=== PATIENT | female | born 1940 | race American Indian/Alaskan Native ===

== ENCOUNTER 2017-03-27 18:22 | Inpatient (IN) | payer MEDICARE ==
[2017-03-27] MEDS ORDERED: Sodium Chloride 0.9% 500 ML IV STA (19:56)
--- NOTE | 2017-03-27 20:13 | ED PDOC ---
Arrival/HPI - General Chief Complaint: Palpitations Time Seen by Provider: 03/27/17 18:34 Historian: Patient - History of Present Illness Narrative History of Present Illness (Text): 03/27/17 20:10 A 76 year old female, whose past medical history includes GERD, hypertension, and asthma, presents to the d complaining of weakness for 2 days. Patient reports 1 week ago, she changed her diet to begin eating healthier in order to improve her blood pressure. She later began experiencing weakness since 2 days ago, and has had a nasal congestion since yesterday. Patient denies of any fever , nausea, vomiting, diarrhea, abdominal pain, chest pain, palpitations, shortness of breath, headache, dizziness, urinary symptoms, recent travels, any sick contacts, or any other complaints. Also, patient mentions she was diagnosed with colon cancer in January and had mass removed. Blood pressure has elevated. Patient takes Losartan Potassium 50 mg PO daily, last intake was at 17 :30. PMD in [place] Time/Duration: > week (2 days) Symptom Onset: Gradual Symptom Course: Unchanged Context: Home Past Medical History - Provider Review Nursing Documentation Reviewed: Yes - Travel History Have you recently traveled outside [place] w/in the past 3 mons?: No - Infectious Disease Hx of Infectious Diseases: None - Tetanus Immunization Tetanus Immunization: Unknown - Cardiac Hx Cardiac Disorders: Yes Hx Hypertension: Yes Other/Comment: fast heart rate when in her 20's - Pulmonary Hx Asthma: Yes - Neurological Hx Neurological Disorder: No - HEENT Hx HEENT Disorder: Yes (glasses) Hx Glaucoma: Yes - Renal Hx Renal Disorder: No Hx Dialysis: No - Endocrine/Metabolic Hx Endocrine Disorders: No - Hematological/Oncological Hx Blood Disorders: No - Integumentary Hx Dermatological Disorder: No - Musculoskeletal/Rheumatological Hx Musculoskeletal Disorders: No Hx Falls: No - Gastrointestinal Hx Gastroesophageal Reflux: Yes - Genitourinary/Gynecological Hx Genitourinary Disorders: No - Psychiatric Hx Psychophysiologic Disorder: No Hx Depression: No Hx Emotional Abuse: No Hx Physical Abuse: No Hx Substance Use: No - Past Surgical History Past Surgical History: No Previous - Anesthesia Hx Anesthesia: No - Suicidal Assessment Feels Threatened In Home Enviroment: No Family/Social History - Physician Review Nursing Documentation Reviewed: Yes Family/Social History: No Known Family HX Smoking Status: Never Smoked Hx Alcohol Use: No Hx Substance Use: No Hx Substance Use Treatment: No Allergies/Home Meds Allergies/Adverse Reactions: Allergies esomeprazole [From Nexium] Allergy (Verified 03/27/17 18:39) NAUSEA ibuprofen [From Motrin] Allergy (Verified 03/27/17 18:39) NAUSEA Penicillins Allergy (Verified 03/27/17 18:39) RASH Tetracyclines Allergy (Verified 03/27/17 18:39) RASH Home Medications: Home Meds Medication Instructions Recorded Confirmed Losartan Potassium 50 mg PO DAILY 02/23/14 03/27/17 Latanoprost 0.005% Opht [XALATAN 1 drp BOTHEYES HS 03/03/15 03/27/17 2.5 Ml] Timolol 0.5% Ophth [Timoptic 0.5% 1 drop BOTHEYES DAILY 03/03/15 03/27/17 Ophth Soln] Review of Systems - Physician Review All systems were reviewed & negative as marked: Yes - Review of Systems Constitutional: Other (weakness). absent: Fevers ENT: Other (nasal congestion) Respiratory: absent: SOB, Cough Cardiovascular: absent: Chest Pain, Palpitations Gastrointestinal: absent: Abdominal Pain, Diarrhea, Nausea, Vomiting Genitourinary Female: absent: Urine Output Changes Physical Exam Vital Signs Reviewed: Yes Vital Signs Temp Pulse Resp BP Pulse Ox 03/27/17 22:28 87 17 168/81 H 100 03/27/17 20:18 79 17 157/82 H 100 03/27/17 18:48 98.5 F 102 H 17 149/67 100 03/27/17 18:39 100.1 F H 96 H 17 149/87 97 Temperature: Febrile Blood Pressure: Normal Pulse: Regular Respiratory Rate: Normal Appearance: Positive for: Well-Appearing Pain Distress: None Mental Status: Positive for: Alert and Oriented X 3 - Systems Exam Head: Present: Atraumatic, Normocephalic Pupils: Present: PERRL Extroacular Muscles: Present: EOMI Conjunctiva: Present: Normal Mouth: Present: Dry Neck: Present: Normal Range of Motion Respiratory/Chest: Present: Clear to Auscultation, Good Air Exchange. No: Respiratory Distress, Accessory Muscle Use Cardiovascular: Present: Regular Rate and Rhythm, Normal S1, S2. No: Murmurs Abdomen: Present: Normal Bowel Sounds. No: Tenderness, Distention, Peritoneal Signs Back: Present: Normal Inspection Upper Extremity: Present: Normal Inspection. No: Cyanosis, Edema Lower Extremity: Present: Normal Inspection. No: Edema Neurological: Present: GCS=15, CN II-XII Intact, Speech Normal Skin: Present: Warm, Dry, Normal Color. No: Rashes Psychiatric: Present: Alert, Oriented x 3, Normal Insight, Normal Concentration Medical Decision Making ED Course and Treatment: 03/27/17 20:15 Impression: 76 year old female with weakness. Physical exam shows mucous membranes dry; heart, lungs, and abdomen normal. DDx: pneumonia, UTI, dehydration Plan: -- EKG -- Chest X-ray -- Labs -- Urinalysis -- urine Culture -- IV Fluids -- Reassess and disposition Prior Visits: Notes and results from previous visits were reviewed. Patient was last seen in the emergency department on 03/13/2017 for abdominal pain. Patient was admitted. Progress Notes: 03/27/17 23:12 VSS, refuses rectal temp. Labs reviewed. Trop (-). UA shows +UTI. CXR: NAD, as read by KRYSTEN. EKG: ST 1st degree AVB, with occ PVC, new T wave inversions in lead V4-V5 not seen in prior EKG in 2014, as read by KRYSTEN. On reevaluation, patient is lying in bed comfortably in no acute distress. Patient states that she feels well and wants to go home. She has no additional complaints. Denies any dizziness, headache, chest pain, shortness of breath. On exam, lungs are clear to auscultation, cardiac regular rate and rhythm, abdomen is soft with no tenderness. Diagnostic results discussed with the patient agreed detail. Patient advised that she has UTI, medicated with Macrobid by mouth. Patient also informed of the EKG changes seen, which were not present on her last EKG. Based on history, exam and diagnostic results plan will be for inpatient observation, due to new EKG changes. Patient agrees with further plan of care for inpatient observation. Case d/w Dr. Larson, agrees with plan for inpt observation. Bridge orders placed. - Lab Interpretations Lab Results: 03/27/17 19:15 03/27/17 19:15 Lab Results 03/27/17 20:49: Urine Color Yellow, Urine Appearance Clear, Urine pH 6.0, Ur Specific [place] <= 1.005, Urine Protein Negative, Urine Glucose (UA) Negative, Urine Ketones Negative, Urine Blood Small H, Urine Nitrate Negative, Urine Bilirubin Negative, Urine Urobilinogen 0.2, Ur Leukocyte Esterase Small H, Urine RBC 0 - 2, Urine WBC 2 - 5, Ur Epithelial Cells 0 - 2, Urine Bacteria Few 03/27/17 19:15: Sodium 140, Potassium 3.6, Chloride 105, Carbon Dioxide 22, Anion Gap 17, BUN 15, Creatinine 0.9, Est GFR ( Amer) > 60, Est GFR (Non- Af Amer) > 60, Random Glucose 107, Calcium 9.4, Total Bilirubin 0.6, AST 47 H, ALT 15, Alkaline Phosphatase 104, Lactate Dehydrogenase 512, Total Creatine Kinase 107, Troponin I < 0.01, Total Protein 8.2, Albumin 4.3, Globulin 3.8, Albumin/Globulin Ratio 1.1 03/27/17 19:15: WBC 6.6, RBC 4.29, Hgb 11.9 L, Hct 37.1, MCV 86.5, MCH 27.7, MCHC 32.1, RDW 15.9 H, Plt Count 210, MPV 10.5, Gran % 57.7, Lymph % (Auto) 34.2 , [place] % (Auto) 7.4 H, Eos % (Auto) 0.5 L, Baso % (Auto) 0.2, Gran # 3.83, Lymph # 2.3, [place] # 0.5, Eos # 0.0, Baso # 0.01 - RAD Interpretation Radiology Orders: 03/27/17 19:55 CHEST PORTABLE [RAD] Stat - Medication Orders Current Medication Orders: Discontinued Medications Sodium Chloride (Sodium Chloride 0.9%) 500 mls @ 500 mls/hr IV .Q1H STA Stop: 03/27/17 20:55 Last Admin: 03/27/17 20:16 Dose: 500 mls/hr eMAR Start Stop Document 03/27/17 20:16 [email or web address] (Rec: 03/27/17 20:16 [email or web address] [id number] Intravenous Solution Start Date 03/27/17 Start Time 20:16 End Date 03/27/17 - PA / BANKRUPTCY PARALEGAL / Resident Statement BERYL has reviewed & agrees with the documentation as recorded. / has examined the patient and agrees with the treatment plan. - Scribe Statement The provider has reviewed the documentation as recorded by the Bud Pedro Provider Scribe Attestation: All medical record entries made by the Kileyibbrandan were at my direction and personally dictated by me. I have reviewed the chart and agree that the record accurately reflects my personal performance of the history, physical exam, medical decision making, and the department course for this patient. I have also personally directed, reviewed, and agree with the discharge instructions and disposition. Disposition/Present on Arrival - Present on Arrival Any Indicators Present on Arrival: No History of DVT/PE: No History of Uncontrolled Diabetes: No Urinary Catheter: No History of Decub. Ulcer: No History Surgical Site Infection Following: None - Disposition Have Diagnosis and Disposition been Completed?: Yes Diagnosis: Weakness, Acute electrocardiography changes, UTI (urinary tract infection) Disposition: HOSPITALIZED Disposition Time: 23:30 Patient Plan: Observation Patient Problems: Current Active Problems Problem Status Onset Acute electrocardiography changes Acute UTI (urinary tract infection) Acute Weakness Acute Condition: STABLE
[2017-03-27 20:26] LABS: BASO # 0.01 K/mm3 (0.0-2.0); BASO % 0.2 % (0.0-3.0); EOS % 0.5 % (1.5-5.0); GRAN # 3.83 (1.4-6.5); GRAN % 57.7 % (50.0-68.0); HEMATOCRIT 37.1 % (36.0-48.0); LYMPH # 2.3 (1.2-3.4); LYMPH % 34.2 % (22.0-35.0); MEAN CELL VOLUME 86.5 fl (80.0-105.0); MEAN CORPUSCULAR HEMOGLOBIN 27.7 pg (25.0-35.0); MEAN CORPUSCULAR HGB CONC 32.1 g/dl (31.0-37.0); MEAN PLATELET VOLUME 10.5 fl (7.0-11.0); MONO # 0.5 (0.1-0.6); MONO % 7.4 % (1.0-6.0); RED CELL DISTRIBUTION WIDTH 15.9 % (11.5-14.5); WHITE BLOOD COUNT 6.6 10^3/ul (4.5-11.0)
[2017-03-27 20:48] LABS: ALB/GLOB RATIO 1.1 (1.1-1.8); ALKALINE PHOSPHATASE 104 U/L (38-126); ALT/SGPT 15 U/L (7-56); AST/SGOT 47 U/L (14-36); BILIRUBIN,TOTAL 0.6 mg/dL (0.2-1.3); BLOOD UREA NITROGEN 15 mg/dL (7-21); CALCIUM 9.4 mg/dL (8.4-10.5); CARBON DIOXIDE 22 mmol/L (21-33); CHLORIDE 105 mmol/L (98-107); GFR AFRICAN-AMERICAN > 60; GLUCOSE,RANDOM 107 mg/dL (70-110); POTASSIUM 3.6 mmol/L (3.6-5.0); SODIUM 140 mmol/L (132-148); TOTAL PROTEIN 8.2 g/dL (5.8-8.3)
[2017-03-27 21:00] LABS: TROPONIN I < 0.01 ng/mL
[2017-03-27 21:02] LABS: URINE BILIRUBIN NEGATIVE (NEGATIVE); URINE BLOOD SMALL (NEGATIVE); URINE GLUCOSE (UA) NEGATIVE (NEGATIVE); URINE KETONE NEGATIVE (NEGATIVE); URINE LEUKOCYTE ESTERASE SMALL Leu/uL (NEGATIVE); URINE PROTEIN NEGATIVE mg/dL (<30 mg/dL); URINE UROBILINOGEN 0.2 E.U./dL (<1 E.U./dL)
[2017-03-27 21:03] LABS: URINE APPEARANCE CLEAR (CLEAR); URINE COLOR YELLOW (YELLOW)
[2017-03-27 21:16] LABS: URINE EPITHELIAL CELLS 0 - 2 /hpf (0-5); URINE RBC 0 - 2 /hpf (0-2)
[2017-03-27 21:17] LABS: URINE BACTERIA FEW (NEG)
[2017-03-28] MEDS ORDERED: Alum-Mag Hydrox-Simethicone Susp (30 mL) PO STA (00:46)
[2017-03-28] MEDS ORDERED: Potassium Chloride 20 mEq ER Tab PO STA (07:40)
--- NOTE | 2017-03-28 09:14 | RAD ---
HISTORY: weakness COMPARISON: Chest radiographs 03/03/2015. FINDINGS: LUNGS: No active pulmonary disease. PLEURA: No significant pleural effusion identified, no pneumothorax apparent. CARDIOVASCULAR: Normal. OSSEOUS STRUCTURES: No significant abnormalities. VISUALIZED UPPER ABDOMEN: Normal. OTHER FINDINGS: None. IMPRESSION: No acute cardiopulmonary disease or significant interval change appreciable.
[2017-03-28] MEDS ORDERED: Aminophylline 25 mg/ml Inj ONE (10:17)
--- NOTE | 2017-03-28 11:39 | CARD ---
APPROVED REPORT EKG Measurement Heart [id number] <Conclusion> Sinus tachycardia with 1st degree AV block with occasional premature ventricular complexes Moderate voltage criteria for LVH, may be normal variant ST & T wave abnormality, consider lateral ischemia Abnormal ECG
--- NOTE | 2017-03-28 12:33 | CON ---
DATE: 03/28/2017 REASON FOR THE CONSULTATION: Palpitation, abnormal EKG, T-inversion. BRIEF CLINICAL HISTORY: This is a 76-year-old female with a past medical history significant for hypertension, asthma, longstanding history of palpitation age of 31, history of hypertension, longstanding more than 30 years, history of colon cancer, status post removal of tumor in [facility] last year 01/2016, history of preop stress test and echo was negative according the patient. She came in yesterday was feeling very weak, lethargic. As the patient changes diet to eating healthier diet and Mediterranean diet and after that she feel very weak, lethargic, and more palpitation, so she started to come to the emergency room. EKG found to be T-inversion V5 and V6, Cardiology consult for called. The patient denies any chest pain. PAST MEDICAL HISTORY: Significant for hypertension, palpitation for many years, "I used to go to a doctor in [place]." PAST SURGICAL HISTORY: Significant for tumor removed, colon cancer removed in January in [facility], being followed in [facility] for tumor. RECENT CARDIAC WORKUP: As follow: The patient had an echo stress test and in [place], resulted in not available. Apparently, it was told negative preop for colon cancer and after that patient had surgery done and was uneventful. Since then the patient denies any chest pain, shortness of breath, or any palpitation, but every now and then complained of palpitation at the age of 31 and mostly as soon as the patient changes diet a new palpitation noted. SOCIAL HISTORY: Denies any smoking. Denies any history of alcohol abuse. CURRENT MEDICATIONS: The patient is taking losartan 50 mg daily, timolol maleate ophthalmic eye drop, and Xalatan eye drop. REVIEW OF SYSTEMS: As per HPI. ALLERGIES: ALLERGIC TO IBUPROFEN, ALLERGY TO PENICILLIN, ALLERGY TO TETRACYCLINE, AND ALLERGY TO NEXIUM. PHYSICAL EXAMINATION: GENERAL: As follows: Temperature afebrile, heart rate , and blood pressure 155/76. HEENT: PERRLA. Extraocular muscles intact. NECK: Supple. No carotid bruits or thyromegaly. CHEST: Clear to auscultation. HEART: S1 and S2 regular. ABDOMEN: Soft. EXTREMITIES: Clubbing and cyanosis negative. LABORATORY DATA: Blood workup as follows: WBC 6.6, hemoglobin 11.9, hematocrit 37.1, and platelet count 210. Chemistry showed sodium 140, potassium 3.6, chloride 105, carbon dioxide 22, anion gap of 17, BUN 15, and creatinine 0.9. Troponin 0.01 once and 0.03. EKG shows normal sinus T-inversion V5 and V6, which is new since 2016, last EKG in the chart here. IMPRESSION: Atypical chest pain, given the age and multiple risk factors of coronary artery suggest echo stress test, to get another set of troponin. We will get lipid profile TSH, and hemoglobin A1c. We will get echo. Further recommendation after the hospital course. We will follow with you. Thank you Dr. Larson for providing me the opportunity in taking care of the patient, Zamzam Hui. Jose Alejandro Martinez MD
[2017-03-28 15:34] VITALS: BMI 30.4
[2017-03-28] MEDS ORDERED: Pneumococcal 23-Valent Vaccine IM ONE (15:34)
--- NOTE | 2017-03-28 16:12 | CARD ---
APPROVED REPORT Protocol: LEXISCAN Test Type: Lexiscan Sestamibi Stress Test Attending Physician: Dr. Jose Alejandro Woodward Referring Physician: Dr. Jessica Larson Test Indications: Chest Pain Height:5 ft 5 in Weight:182lbs Medications: tylenol, maalox, keflex, zofran, k-demian Medical History: 76 year old female with a h/o asthma, htn, colon ca, gerd, galucoma Target HR: 145 bpm Resting ECG: RSR. Resting Heart Rate: 88 bpm Resting Blood Pressure: 140/80mmHg Submaximum (85%): 123 bpm PROCEDURE Pharmacologic stress testing was performed using 0.4mg per 5ml of regadenoson given intravenously over 7-10 seconds. Reversal agent aminophyline 100 mg, given intravenously for Nausea. POST EXERCISE Reason for Termination: Protocol completed Target HR: No Max HR: 96 bpm 84% of Maximum Predicted HR: 145 bpm Exercise duration: 00:30 min:sec, 0 Stage Exercise capacity: 1.0METs Max Blood Pressure: 174/86mmHg Blood Pressure response to exercise: normal resting BP - appropriate response Heart Rate response to exercise: appropriate Chest Pain: No, none Angina index: 0 Arrhythmia: No, none ST Change: No, none Deviation: 0 mm INTERPRETATION Stress EKG Conclusion: IV LEXISCAN NUCLEAR STRESS TEST NEGATIVE FOR CHEST PAIN AND NEGATIVE FOR ST-T CHANGES. NUCLEAR SCAN REPORT PENDING. Signed by Jose Alejandro Woodward Electronically Approved: 03/28/2017 11:38:17 EXAM: Myocardial Perfusion REST/STRESS Stress Test Type: Pharmacologic Imaging Protocol Rest Spect myocardial perfusion imaging was performed in supine position 45 minutes following the injection of 10.7 mCi of Tc-99 Myoview. At peak stress, the patient was injected intravenously with 30.4mCi of Tc-99 tetrofosmin after an infusion time of 0 minutes and 10 seconds. Gated Stress Spect was performed 65 minutes after intravenous Tc-99 Myoview injection. The images were gated to evaluate regional wall motion and calculate ventricular ejection fraction.Images were reconstructed using backfilter projection method in short horizontal and verticle long axis. Spect slices were generated. LV Perfusion The quality of the study is good. The left ventricle is normal in size. The right ventricle is unremarkable. The lung uptake is within normal limits. The distribution of tracer reveals focal hot spot in the septal region. The remainder of the LV myocardium shows unirform distribution of tracer. The rest myocardial perfusion study shows no significant change. Wall Motion Wall motion study shows good contractility of the left ventricle. LVEF =66%. Conclusion 1. Normal SPECT myocardial perfusion study. 2. Focal hot spot is a normal variant. 3. Normal gated wall motion of the left ventricle.
[2017-03-28 16:55] LABS: BLOOD UREA NITROGEN 9 mg/dL (7-21); CALCIUM 9.6 mg/dL (8.4-10.5); CARBON DIOXIDE 23 mmol/L (21-33); CHLORIDE 106 mmol/L (98-107); CHOLESTEROL 189 mg/dL (130-200); GFR AFRICAN-AMERICAN > 60; GLUCOSE,RANDOM 157 mg/dL (70-110); POTASSIUM 3.8 mmol/L (3.6-5.0); SODIUM 141 mmol/L (132-148)
[2017-03-28 17:06] LABS: TROPONIN I 0.06 ng/mL
--- NOTE | 2017-03-28 18:28 | CARD ---
APPROVED REPORT EXAM: Two-dimensional and M-mode echocardiogram with Doppler and color Doppler. INDICATION LV Function:SystolicDiastolic Chest Pain 2D DIMENSIONS Left Atrium (2D)3.1 (1.6-4.0cm)IVSd1.3 (0.7-1.1cm) LVDd3.7 (3.9-5.9cm)PWd1.4 (0.7-1.1cm) LVDs2.3 (2.5-4.0cm)FS (%) 36.4 % LVEF (%)67.1 (>50%) M-Mode DIMENSIONS Aortic Root3.20 (2.2-3.7cm)Aortic Cusp Exc.1.20 (1.5-2.0cm) Mitral Valve E/A ratio0.0 TDI E/Lateral E'0.0E/Medial E'0.0 Tricuspid Valve TR Peak [id number] [id number] Peak Gr.35mmHg [id number] LEFT VENTRICLE The left ventricle is normal size. There is mild concentric left ventricular hypertrophy. The left ventricular function is normal.EF-65% There is normal LV segmental wall motion. Transmitral Doppler flow pattern is Grade III-reversible restrictive diastolic dysfunction. No left ventricle thrombus noted on this study. There is no ventricular septal defect visualized. There is no mass noted in the left ventricle. RIGHT VENTRICLE The right ventricle is normal size. There is normal right ventricular wall thickness. The right ventricular systolic function is normal. ATRIA The left atrium is mildly dilated in long axis The right atrium size is normal. The interatrial septum is intact with no evidence for an atrial septal defect. AORTIC VALVE The aortic valve is thickened but opens well. No aortic regurgitation is present. There is no aortic valvular stenosis. There is no aortic valvular vegetation. MITRAL VALVE The mitral valve is thickened but opens well. Mitral regurgitation is moderate to severe. There is no mitral valve stenosis. There is no evidence of mitral valve prolapse. TRICUSPID VALVE The tricuspid valve leaflets are thickened , but open well. There is mild tricuspid regurgitation.RVSP-45 mmof Hg. There is no tricuspid valve stenosis. There is no tricuspid valve prolapse or vegetation. PULMONIC VALVE The pulmonary valve is normal in structure. There is trace pulmonic valvular regurgitation. There is no pulmonic valvular stenosis. GREAT VESSELS The aortic root is normal in size. The ascending aorta is normal in size. The pulmonary artery is normal. The IVC is normal in size and collapses >50% with inspiration. PERICARDIAL EFFUSION There is no pleural effusion. There is no pericardial effusion.
--- NOTE | 2017-03-28 21:28 | CON ---
DATE: 03/28/2017 PULMONARY CONSULT REFERRING PHYSICIAN: Jessica Larson MD REASON FOR CONSULT: Chest pain and palpitation. HISTORY OF PRESENT ILLNESS: This is a 76 years old female with past medical history significant for hypertension, history of colon cancer, noncompliant with the medication because cannot afford it. Usually follow physician at [place]. Came into emergency room with palpitation, not feeling well, uncontrolled hypertension, short of breath with exertion. No specific chest pain. No nausea, dysuria, leg pain, or leg swelling. Admits to be snoring, daytime sleepy. PAST MEDICAL HISTORY: Hypertension, history of colon cancer, history of laparotomy, and palpitation. ALLERGIES: TO NEXIUM, IBUPROFEN, PENICILLIN, AND TETRACYCLINE. MEDICATIONS: She is supposed to be on Cozaar, could not afford it, not taking it. REVIEW OF SYSTEMS: No headache. No rhinitis. Palpitation is better. Presently no chest pain, short of breath exertion. Admits to snoring, daytime sleepy and tired. No abdominal pain. No dysuria. No leg pain or leg swelling. PHYSICAL EXAMINATION: GENERAL: Lying in the bed, in no acute distress. VITAL SIGNS: Temperature is 98, heart rate is 80, respiratory rate is 20, blood pressure 170/106, and pulse ox 99% on room air. HEENT: Moist mucous membranes. Crowded airway. Mallampati score is IV. NECK: Supple. No JVD. LUNGS: There is scattered rhonchi. HEART: S1 and S2. ABDOMEN: Soft and nontender. No organomegaly. EXTREMITIES: There is no edema. NEUROLOGIC: Awake and alert, follow simple commands. LABORATORY DATA: Shows hemoglobin 11.9, hematocrit 37.1, WBC 6.6, and platelet count is 210. Sodium 140, potassium 3.6, chloride 105, bicarbonate 22, BUN 15, creatinine 0.9, glucose 107, calcium 9.4. Total bilirubin 0.6, AST 47, ALT 15, and alkaline phosphatase is 104. Troponin is less than 0.03. Albumin is 4.3. Urinalysis shows wbc 2 to 5, rbc 0 to 2. Had a chest x-ray done which showed no acute cardiopulmonary disease. Stress test is pending. IMPRESSION AND PLAN: Uncontrolled hypertension, noncompliant with the medications, history of colon cancer, may have sleep apnea syndrome. We will add beta-liseth with Cozaar. Matter of fact, we will discontinue Cozaar and add amlodipine because the patient's insurance is not paying for it. Keep head elevated 45 degrees. Will benefit from sleep study as an outpatient. Gastric prophylaxis. DVT prophylaxis. Thank you and we will follow with you. Jose Alejandro Mcdonough MD
[2017-03-28] MEDS ORDERED: Latanoprost 2.5 ml Opht Soln OS SCH (22:00)
--- NOTE | 2017-03-29 00:41 | HP ---
CHIEF COMPLAINT: Palpitation. HISTORY OF PRESENT ILLNESS: Ms. Zamzam Hui is a 76-year-old female, well known to me from last admission with history of GERD, hypertension and asthma, came to the [facility] emergency room complaining of weakness for two days. The patient reports one week ago, she changed her diet to being eating healthier in order to improve her blood pressure. She later began experiencing weakness since two days and has had nasal congestion since yesterday. The patient denies any fever, chills. No nausea or vomiting. No hematuria or hematochezia. No diarrhea. No abdominal pain. No palpitations. No shortness of breath, headache, dizziness, urinary symptoms or sick contacts. Also, the patient mentioned she was discharged with colon cancer in January and had a mass removed. The patient is taking losartan for blood pressure. PAST MEDICAL HISTORY: Hypertension, fast heart rate when she was in 20s, asthma, glaucoma, gastroesophageal reflux disease and history of colon surgery. FAMILY HISTORY: Father and mother noncontributory. HABITS: Never smoked. No drugs. No ethanol. ALLERGIES: THE PATIENT IS ALLERGIC WITH NEXIUM, MOTRIN, PENICILLIN AND TETRACYCLINE. HOME MEDICATIONS: timolol eyedrops. REVIEW OF SYSTEMS: The patient was seen and examined and tested lab. No nausea, vomiting or diarrhea. No hematuria or hematochezia. No swelling of the leg. No chest pain. No headache. No dizziness. Just complaining about palpitation. History of asthma. No dysuria. No fever. No chills. No abdominal pain. No dryness of the skin. No skin rash. PHYSICAL EXAMINATION: VITAL SIGNS: Blood pressure 130/40, temperature 98.6, pulse 80, respiratory rate 18. HEENT: Head is normocephalic and atraumatic. Eyes: PERRLA. Extraocular muscles are intact. Conjunctivae clear. Nose is patent. Mucous membrane is moist. NECK: Supple. No carotid bruit or thyromegaly. CHEST: Bilaterally symmetrical. HEART: S1 and S2 positive. LUNGS: Clear to auscultation. ABDOMEN: Soft. Bowel sounds present. No organomegaly. EXTREMITIES: No edema. No cyanosis. NEUROLOGIC: The patient is awake and alert. Moving all four extremities. No focal deficits. Cranial nerves II through XII are grossly intact. LABORATORY DATA: White blood cells 6.6, hemoglobin 11.9, hematocrit 37.1, platelets 210. Sodium 140, potassium 3.3, BUN 15, creatinine 0.9 and glucose of 107. ASSESSMENT AND PLAN: Ms. Zamzam Hui, 76 years old lady with anemia, came with palpitation, went for stress test according to Dr. Neal De Paz, sled maker. Focal hotspot is normal, variant normal, gated wall motion of the left ventricle. Normal SPECT myocardial perfusion study. History of asthma. History of colon cancer. The patient has her doctor in [place]. Came with atypical chest pain. Lipid profile, TSH, hemoglobin A1c ordered. Reviewed Dr. Martinez's noted. Repeat labs. GI and DVT prophylaxis. We will follow. Jessica Larson MD MTDD
[2017-03-29 00:54] VITALS: O2SAT 98
[2017-03-29 06:02] VITALS: RESP 20
[2017-03-29 06:23] LABS: BASO # 0.01 K/mm3 (0.0-2.0); BASO % 0.1 % (0.0-3.0); EOS % 0.5 % (1.5-5.0); GRAN # 5.33 (1.4-6.5); GRAN % 68.9 % (50.0-68.0); HEMATOCRIT 39.9 % (36.0-48.0); LYMPH # 1.9 (1.2-3.4); MEAN CELL VOLUME 85.6 fl (80.0-105.0); MEAN CORPUSCULAR HEMOGLOBIN 27.7 pg (25.0-35.0); MEAN CORPUSCULAR HGB CONC 32.3 g/dl (31.0-37.0); MEAN PLATELET VOLUME 9.7 fl (7.0-11.0); MONO # 0.5 (0.1-0.6); MONO % 6.5 % (1.0-6.0); WHITE BLOOD COUNT 7.7 10^3/ul (4.5-11.0)
[2017-03-29 06:56] LABS: ALB/GLOB RATIO 1.1 (1.1-1.8); ALKALINE PHOSPHATASE 97 U/L (38-126); ALT/SGPT 24 U/L (7-56); AST/SGOT 28 U/L (14-36); BILIRUBIN,TOTAL 0.6 mg/dL (0.2-1.3); BLOOD UREA NITROGEN 8 mg/dL (7-21); CALCIUM 9.6 mg/dL (8.4-10.5); CARBON DIOXIDE 25 mmol/L (21-33); CHLORIDE 106 mmol/L (95-110); GFR AFRICAN-AMERICAN > 60; GLUCOSE,RANDOM 111 mg/dL (70-110); MAGNESIUM 1.9 mg/dL (1.7-2.2); PHOSPHOROUS 2.1 mg/dL (2.5-4.5); POTASSIUM 3.9 mmol/L (3.6-5.0); SODIUM 143 mmol/L (132-148); TOTAL PROTEIN 7.9 g/dL (5.8-8.3)
[2017-03-29] MEDS ORDERED: Enoxaparin 40 mg Syringe SC SCH (10:00)
--- NOTE | 2017-03-29 11:20 | CP.PCM.PN ---
Subjective - Date & Time of Evaluation Date of Evaluation: 03/29/17 Time of Evaluation: 11:17 - Subjective Subjective: discharge Objective - Vital Signs/Intake and Output Vital Signs (last 24 hours): Temp Pulse Resp BP Pulse Ox 97.8 F 99 H 20 146/72 98 03/29/17 06:00 03/29/17 11:03 03/29/17 06:00 03/29/17 11:03 03/29/17 06:00 Intake and Output: 03/29/17 03/29/17 06:59 18:59 Intake Total 480 Output Total 5 Balance 475 - Medications Medications: Current Medications Amlodipine Besylate (Norvasc) 10 mg PO DAILY [facility] Last Admin: 03/29/17 11:03 Dose: 10 mg Enoxaparin Sodium (Lovenox) 40 mg SC DAILY [facility] PRN Reason: Protocol Last Admin: 03/29/17 11:03 Dose: 40 mg Famotidine (Pepcid) 40 mg PO HS [facility] Last Admin: 03/28/17 21:41 Dose: Not Given Latanoprost (Xalatan Opht) 0 ml OS HS [facility] Last Admin: 03/28/17 21:52 Dose: 2.5 ml Metoprolol Tartrate (Lopressor) 25 mg PO Q12 [facility] Last Admin: 03/29/17 11:03 Dose: 25 mg Ondansetron HCl (Zofran Inj) 4 mg IVP Q6H PRN PRN Reason: Nausea/Vomiting Timolol Maleate (Timoptic 0.5% Ophth Soln) 1 drop OS DAILY [facility] - Labs Labs: 03/29/17 06:00 03/29/17 06:00 - Constitutional Appears: Well - Head Exam Head Exam: ATRAUMATIC - Eye Exam Eye Exam: EOMI, Normal appearance, PERRL Pupil Exam: NORMAL ACCOMODATION, PERRL - ENT Exam ENT Exam: Mucous Membranes Moist, Normal Exam - Neck Exam Neck Exam: Full ROM - Respiratory Exam Respiratory Exam: NORMAL BREATHING PATTERN - Cardiovascular Exam Cardiovascular Exam: Tachycardia - GI/Abdominal Exam GI & Abdominal Exam: Normal Bowel Sounds - Extremities Exam Extremities Exam: Full ROM, Normal Capillary Refill - Neurological Exam Neurological Exam: Alert, Awake, CN II-XII Intact, Normal Gait, Oriented x3 Neuro motor strength exam: Left Upper Extremity: 5, Right Upper Extremity: 5, Left Lower Extremity: 5, Right Lower Extremity: 5 - Psychiatric Exam Psychiatric exam: Normal Affect, Normal Mood - Skin Skin Exam: Dry, Intact, Normal Color, Warm Assessment and Plan - Assessment and Plan (Free Text) Assessment: Discharge Plan: patient states she wants to follow up with her PMD in [place]. she feels more comfortable with her referring a customer sales consultant. patient given Dr. Larson information for follow up appointment if needed, appointment available for Apr, at 2pm. if she changes her mind. Contact information for Dr. Martinez given in the event that she decides to follow up with cardiology in [place]. Patient is aware that she has moderate to severe mitral valve regurgitation instructed to stop in medical records for results. Prescriptions given for norvasc and lopressor.
[2017-03-29 12:24] VITALS: BP 147/84; PULSE 75; TEMP 98.7
--- NOTE | 2017-03-29 12:48 | PN ---
DATE: 03/29/2017 REASON FOR CONSULTATION AND FOLLOWUP: Palpitation, abnormal EKG, and T-inversion. SUBJECTIVE: The patient denies any chest pain, shortness of breath, or any palpitations. OBJECTIVE: GENERAL: Lying flat in the bed, not in apparent distress. VITAL SIGNS: As follows; temperature afebrile, heart rate 80, and blood pressure 146/72. HEENT: PERRLA. Extraocular muscles intact. NECK: Supple. No carotid bruit. CHEST: Clear to auscultation. HEART: S1 and S2 regular. ABDOMEN: Soft. EXTREMITIES: Clubbing and cyanosis negative. LABORATORY DATA: Blood workup as follows: WBC 7.7, hemoglobin 12.9, hematocrit 39.9, and platelet count 262. Chemistry showed sodium 142, potassium 3.9, chloride 109, carbon dioxide 25, anion gap of 16, BUN 8, creatinine 0.8, total protein 7.9, albumin 4.1, and albumin-globulin ratio 1.1. The patient had stress myocardial perfusion study done yesterday that showed normal stress myocardial perfusion study with ejection fraction of 66%, normal gated wall motion. The patient had echocardiography done that shows ejection fraction of 65%, and [id number] mitral regurgitation. Echo showed repeat ejection fraction of 65%,diastolic dysfunction, mitral regurgitation, [id number] tricuspid regurgitation, mild RV systolic pressure of 45, and trace pulmonary insufficiency. IMPRESSION: A 76-year-old female with the past medical history significant for colon cancer, status post resection one year ago at [facility] admitted with palpitation. The patient underwent noninvasive workup as stress test is negative, but [id number] mitral regurgitation. the patient for possible cardiac catheterization and possible mitral valve repair. The patient wanted to be discharged and want to followed by the [facility]. The patient will take all the records and go to the [facility] for evaluation as well for possible mitral valve repair. So, we will discontinue telemetry. Continue metoprolol. The patient is on losartan, so continue metoprolol and continue losartan. We will follow with you. Since the patient was on losartan, we will resume back on the losartan. We will continue low dose of beta-liseth 25 b.i.d. We will discontinue telemetry. discussion done and the patient wanted to be followed up with the patient services rep at [facility]. Interim, continue beta-liseth and continue losartan. Thank you Dr. Larson for providing me the opportunity in taking care of patient, Zamzam Hui. Jose Alejandro Martinez MD
--- NOTE | 2017-04-01 11:51 | PQF GENQUE ---
This form is a permanent part of the medical record Dr. Martinez, Clarification of your documentation is requested to better reflect the severity of illness and intensity of treatment of your patient. Indicators present : patient presented with palpitations and atypical chest pain. What was the caused of these symptoms if known ? Please specify below. Thank you. [] Specify: [] [] Specify: [] [] Specify: [] [] Specify: [] Location in the medical record that reflects the above clinical findings: [] Treatment Provided: [] PHYSICIAN'S RESPONSE Based on your medical judgment of the clinical indicators outlined above please clarify the following: [x] Practitioner response : secondary to mitral valve disease ( mitral Regurgitation). [] If unable to determine, please check the box, sign and date. Present On Admission (POA) Indicator: [x] Present at the time of admission [] Not present at the time of admission [] Clinically Undetermined In responding to this query, please exercise your independent professional judgment. The fact that a question is asked does not imply that any particular answer is desired or expected. Thank you for your clarification on this documentation. If you have any questions please call:[ ] * Thank you, [ ]MIKKI COONgame producer KARINE
== END 2017-03-29 12:29 | disposition home or self-care (01) | DRG 307 ==
LOC: ED 18:22 → ERH 23:42 → 2RNO 03-28 16:12 → OBSVTOIN 03-28 21:05
PROVIDERS: ADMIT Internal Medicine; ATTEND Internal Medicine
DX: I34.0 Nonrheumatic mitral (valve) insufficiency (principal); N39.0 Urinary tract infection, site not specified; I10 Essential (primary) hypertension; K21.9 Gastro-esophageal reflux disease without esophagitis; J45.909 Unspecified asthma, uncomplicated; H40.9 Unspecified glaucoma; Z85.038 Personal history of other malignant neoplasm of large intestine; Z88.0 Allergy status to penicillin; Z88.6 Allergy status to analgesic agent; Z91.14 Patient's other noncompliance with medication regimen

== ENCOUNTER 2018-01-29 09:15 | Emergency (ER) | payer MEDICARE ==
[2018-01-29 09:20] VITALS: BMI 31.9
[2018-01-29 09:25] VITALS: TEMP 99
--- NOTE | 2018-01-29 09:40 | ED PDOC ---
Arrival/HPI - General Chief Complaint: Lower Extremity Problem/Injury Time Seen by Provider: 01/29/18 09:19 Historian: Patient - History of Present Illness Narrative History of Present Illness (Text): 01/29/18 09:37 This 77 yo female, whose past medical history includes GERD, hypertension, and asthma, presents to this ED department complaining of b/l feet swelling x 7 days. Patient denies SOB, CP, VALE, leg pain, or other somatic complains. Patient stated she is taking Norvasc 10 mg daily. Time/Duration: Other (see hpi) Context: Home Past Medical History - Provider Review Nursing Documentation Reviewed: Yes - Infectious Disease Hx of Infectious Diseases: None - Tetanus Immunization Tetanus Immunization: Unknown - Cardiac Hx Cardiac Disorders: Yes Hx Hypertension: Yes Other/Comment: fast heart rate when in her 20's - Pulmonary Hx Asthma: Yes - Neurological Hx Neurological Disorder: No - HEENT Hx HEENT Disorder: Yes (glasses) Hx Cataracts: Yes Hx Glaucoma: Yes - Renal Hx Renal Disorder: No Hx Dialysis: No - Endocrine/Metabolic Hx Endocrine Disorders: No - Hematological/Oncological Hx Cancer: Yes (colon dx 01/2016 mass removed) Hx Chemotherapy: No - Integumentary Other/Comment: dry skin lle - Musculoskeletal/Rheumatological Hx Falls: No - Gastrointestinal Hx Gastroesophageal Reflux: Yes - Genitourinary/Gynecological Hx Genitourinary Disorders: No - Psychiatric Hx Psychophysiologic Disorder: No Hx Depression: No Hx Emotional Abuse: No Hx Physical Abuse: No Hx Substance Use: No - Past Surgical History Past Surgical History: No Previous - Anesthesia Hx Anesthesia: No - Suicidal Assessment Feels Threatened In Home Enviroment: No Family/Social History - Physician Review Nursing Documentation Reviewed: Yes Family/Social History: Other (noncontributory) Smoking Status: Never Smoked Hx Alcohol Use: No Hx Substance Use: No Hx Substance Use Treatment: No Allergies/Home Meds Allergies/Adverse Reactions: Allergies esomeprazole [From Nexium] Allergy (Verified 03/27/17 18:39) NAUSEA ibuprofen [From Motrin] Allergy (Verified 03/27/17 18:39) NAUSEA Penicillins Allergy (Verified 03/27/17 18:39) RASH Tetracyclines Allergy (Verified 03/27/17 18:39) RASH Home Medications: Home Meds Medication Instructions Recorded Confirmed Latanoprost 0.005% Opht [Xalatan 1 drp BOTHEYES HS 03/03/15 01/29/18 Opht] Timolol 0.5% Ophth [Timoptic 0.5% 1 drop BOTHEYES DAILY 03/03/15 01/29/18 Ophth Soln] Losartan [Cozaar] 1 tab PO DAILY 01/29/18 01/29/18 Review of Systems - Review of Systems Constitutional: Normal. absent: Fatigue, Weight Change, Fevers Eyes: Normal ENT: Normal Respiratory: Normal. absent: SOB, Cough Cardiovascular: Edema. absent: Chest Pain, Palpitations, Calf Pain, VALE, Orthopnea, Syncope Gastrointestinal: Normal. absent: Abdominal Pain, Nausea, Vomiting Genitourinary Female: Normal. absent: Dysuria Musculoskeletal: Normal Skin: Normal. absent: Rash, Pruritis Neurological: Normal. absent: Headache, Dizziness, Focal Weakness, Gait Changes , Speech Changes, Disequilibrium, Seizure Endocrine: Normal Hemo/Lymphatic: Normal Psychiatric: Normal Physical Exam Vital Signs Temp Pulse Resp BP Pulse Ox 01/29/18 12:52 98 01/29/18 12:43 88 17 140/83 98 01/29/18 11:15 87 16 138/80 98 01/29/18 09:49 99 H 161/77 H 01/29/18 09:32 102 H 17 151/85 H 99 01/29/18 09:21 99.0 F 113 H 18 188/83 H 97 Temperature: Afebrile Blood Pressure: Normal Pulse: Regular Respiratory Rate: Normal Appearance: Positive for: Well-Appearing, Non-Toxic, Comfortable Pain Distress: None Mental Status: Positive for: Alert and Oriented X 3 - Systems Exam Head: Present: Atraumatic, Normocephalic Pupils: Present: PERRL Extroacular Muscles: Present: EOMI Conjunctiva: Present: Normal Mouth: Present: Moist Mucous Membranes Neck: Present: Normal Range of Motion Respiratory/Chest: Present: Clear to Auscultation, Good Air Exchange. No: Respiratory Distress, Accessory Muscle Use Cardiovascular: Present: Regular Rate and Rhythm, Normal S1, S2. No: Murmurs Abdomen: No: Tenderness, Distention, Peritoneal Signs Back: Present: Normal Inspection Upper Extremity: Present: Normal Inspection, Normal ROM. No: Cyanosis, Edema Lower Extremity: Present: Normal Inspection, Edema ((+) right foot and ankle trace edema), Normal ROM, Temperature Abnormalties, Neurovascularly Intact, Capillary Refill < 2 s Neurological: Present: GCS=15, CN II-XII Intact, Speech Normal Skin: Present: Warm, Dry, Normal Color. No: Rashes Psychiatric: Present: Alert, Oriented x 3, Normal Insight, Normal Concentration Medical Decision Making ED Course and Treatment: 01/29/18 09:48 Patient came c/o b/l foot edema x 7 days. Patient admits taking Norvasc 10 mg daily for over a month. Patient denies SOB, CP, VALE or other somatic complains. Labs, imaging, EKG were ordered 01/29/18 12:[address] Larson regarding CT scan result which shows a large nodule, and concerning for neoplasm. She recommended to have patient f/u her office tomorrow for out-patient testing. Re-evaluation. Patient feels better. Discussed results and plan with patient who expresses understanding. All questions answered and there is agreement with the plan to discharge home with instructions. Patient stable for discharge. Return if symptoms persist or worsen. I recommended patient to see Dr. Larson to review leg swelling, and also to get further instruction for lung nodule. I told patient lung nodule could be a cancerous mas, and she need to have further testing including biopsy. She understood concern and recommendation. Re-evaluation Time: 12:47 Reassessment Condition: Re-examined, Unchanged - Lab Interpretations Lab Results: 01/29/18 09:55 01/29/18 10:30 Lab Results 01/29/18 10:30: Sodium 144, Potassium 3.8, Chloride 107, Carbon Dioxide 25, Anion Gap 17, BUN 15, Creatinine 0.8, Est GFR ( Amer) > 60, Est GFR (Non- Af Amer) > 60, Random Glucose 125 H, Calcium 9.4, Magnesium 2.4 H, Total Bilirubin 0.3, AST 26, ALT 11, Alkaline Phosphatase 101, NT-Pro-B Natriuret Pep 31.8, Total Protein 8.2, Albumin 4.3, Globulin 3.9, Albumin/Globulin Ratio 1.1 01/29/18 09:55: WBC 7.1, RBC 4.37, Hgb 12.4, Hct 37.8, MCV 86.5, MCH 28.4, MCHC 32.8, RDW 15.7 H, Plt Count 254, MPV 10.1, Gran % 64.2, Lymph % (Auto) 30.6, Mayes % (Auto) 4.5, Eos % (Auto) 0.6 L, Baso % (Auto) 0.1, Gran # 4.52, Lymph # ( Auto) 2.2, Mayes # (Auto) 0.3, Eos # (Auto) 0.0, Baso # (Auto) 0.01 I have reviewed the lab results: Yes Interpretation: No sign. chg./baseline - RAD Interpretation Radiology Orders: 01/29/18 09:46 CHEST PORTABLE [RAD] Stat DUPLEX LOWER EXTRM VEIN BILAT [US] Stat 01/29/18 10:42 CHEST W/O CONTRAST [CT] Stat - EKG Interpretation Interpreted by ED Physician: Yes (Sinus Rhythm 87 bpm with 1st degree AV block. No ST changes) Type: 12 lead EKG Comparison: Similar to previous EKG - Medication Orders Current Medication Orders: Discontinued Medications Metoprolol Succinate (Toprol Xl) 25 mg PO STAT STA Stop: 01/29/18 09:43 Last Admin: 01/29/18 09:49 Dose: 25 mg MAR Pulse and Blood Pressure Document 01/29/18 09:49 SF (Rec: 01/29/18 09:49 [id number]) Pulse Pulse Rate (60-90) 99 Blood Pressure Blood Pressure (100/60-150/90) 161/77 Disposition/Present on Arrival - Present on Arrival Any Indicators Present on Arrival: No History of DVT/PE: No History of Uncontrolled Diabetes: No Urinary Catheter: No History of Decub. Ulcer: No History Surgical Site Infection Following: None - Disposition Have Diagnosis and Disposition been Completed?: Yes Diagnosis: Incidental pulmonary nodule, greater than or equal to 8mm, Leg edema Disposition: HOME/ ROUTINE Disposition Time: 12:48 Patient Plan: Discharge Condition: GOOD Discharge Instructions (ExitCare): Pulmonary Nodule, Dependent Edema (DC) Additional Instructions: It is very important to follow up up with Dr. Larson regarding this large pulmonary nodule found in cat scan in 1 day. This could be cancer. So you need to see Dr. Larson to get further testing, and to rule out malignancy. Tell Dr. Larson about swelling feet. And taht you are taking [facility] Referrals: Jessica Larson MD [Staff Provider] - Follow up with primary Forms: [employer] (Tajik)
[2018-01-29] MEDS ORDERED: Metoprolol Succinate 25 mg XL Tab PO STA (09:42)
[2018-01-29 10:05] LABS: BASO # 0.01 K/mm3 (0.0-2.0); BASO % 0.1 % (0.0-3.0); EOS % 0.6 % (1.5-5.0); GRAN # 4.52 (1.4-6.5); GRAN % 64.2 % (50.0-68.0); HEMOGLOBIN 12.4 g/dL (12.0-16.0); LYMPH # 2.2 (1.2-3.4); LYMPH % 30.6 % (22.0-35.0); MEAN CELL VOLUME 86.5 fl (80.0-105.0); MEAN CORPUSCULAR HEMOGLOBIN 28.4 pg (25.0-35.0); MEAN CORPUSCULAR HGB CONC 32.8 g/dl (31.0-37.0); MEAN PLATELET VOLUME 10.1 fl (7.0-11.0); MONO # 0.3 (0.1-0.6); MONO % 4.5 % (1.0-6.0); RBC 4.37 10^6/uL (3.5-6.1); RED CELL DISTRIBUTION WIDTH 15.7 % (11.5-14.5); WHITE BLOOD COUNT 7.1 10^3/ul (4.5-11.0)
--- NOTE | 2018-01-29 10:39 | RAD ---
Date of service: 01/29/2018 HISTORY: edema COMPARISON: 03/27/2017 FINDINGS: LUNGS: No dense consolidation. The right infrahilar peribronchial markings appear slightly prominent some chronic peribronchial thickening ibrahim here is a consideration no significant change here is proceed allowing for the differences in technique currently more obscuration here noted. Nodular opacity projects over the heart approximately 1.6 cm in size -its clinical significance, if any is unclear however a pulmonary nodule is the diagnosis of exclusion. For further evaluation consider CT of the chest without contrast. PLEURA: No significant pleural effusion identified, no pneumothorax apparent. CARDIOVASCULAR: Probable top-normal heart size. Prominent descending thoracic aorta as before. OSSEOUS STRUCTURES: Mild scoliosis and thoracic spondylosis. VISUALIZED UPPER ABDOMEN: Normal. OTHER FINDINGS: None. IMPRESSION: Nodular opacity projects over the left heart approximately 1.6 cm in size -its clinical significance, if any is unclear. However a pulmonary nodule is the diagnosis of exclusion. For further evaluation consider CT of the chest without contrast. Comments: Findings were called in to the ER, and given to the nurse, Ángela at approximately 10:33 a.m. on 01/29/2018 . . I was not able to reach directly the PA KRYSTEN Early
[2018-01-29 11:07] LABS: ALB/GLOB RATIO 1.1 (1.1-1.8); ALBUMIN 4.3 g/dL (3.0-4.8); ALT/SGPT 11 U/L (7-56); AST/SGOT 26 U/L (14-36); BLOOD UREA NITROGEN 15 mg/dL (7-21); CALCIUM 9.4 mg/dL (8.4-10.5); GFR AFRICAN-AMERICAN > 60; GFR NON-AFRICAN AMERICAN > 60
[2018-01-29 11:15] LABS: B-TYPE NATRIURETIC PEPTIDE 31.8 pg/mL (0-450)
--- NOTE | 2018-01-29 11:15 | CT ---
Date of service: 01/29/2018 PROCEDURE: CT Chest without contrast HISTORY: abnormal CXR r/o nodule COMPARISON: Portable chest film earlier same day TECHNIQUE: Contiguous axial images were obtained through the chest without intravenous contrast enhancement. Sagittal and coronal reconstructions were performed. Radiation dose (DLP): 480 mGy-cm. This CT exam was performed using one or more of the following dose reduction techniques: Automated exposure control, adjustment of the mA and/or kV according to patient size, and/or use of iterative reconstruction technique. FINDINGS: LUNGS: There is a 17 x 20 mm nodule in the left lower lobe. This corresponds to the nodule seen on the chest x-ray. This is suspicious for neoplastic lesion. This nodule was not present on previous chest films dating back to 03/03/2015 The finding is best seen on image 70 series 3. MEDIASTINUM: Unremarkable thoracic aorta. No aneurysm. Normal sized heart. Main pulmonary artery unremarkable. No vascular congestion. No lymphadenopathy. PLEURA: No pleural fluid. No pneumothorax. BONES: No fracture. No destructive lesion. UPPER ABDOMEN: Grossly unremarkable. OTHER FINDINGS: None. IMPRESSION: There is a 17 x 20 mm nodule in the left lower lobe. This corresponds to the nodule seen on the chest x-ray. This is suspicious for neoplastic lesion. There is no mediastinal adenopathy.
[2018-01-29 12:43] VITALS: O2SAT 98
[2018-01-29 12:44] VITALS: BP 140/83; PULSE 88; RESP 17
--- NOTE | 2018-01-29 14:16 | CARD ---
APPROVED REPORT Date of service: 01/29/2018 EKG Measurement Heart [id number] <Conclusion> Sinus rhythm with 1st degree AV block Moderate voltage criteria for LVH, may be normal variant Cannot rule out Septal infarct, age undetermined Abnormal ECG
--- NOTE | 2018-01-30 18:04 | US ---
HISTORY: Leg pain and swelling. Evaluate for DVT PHYSICIAN(S): James Fernandez MD. TECHNIQUE: Duplex sonography and color-flow Doppler with graded compression were used to evaluate the deep venous systems of both lower extremities. FINDINGS: The visualized deep venous systems of both lower extremities are sonographically normal and compressible. Normal wave forms and augmentation are seen. There is no sonographic evidence for deep venous thrombosis in the visualized segments of both lower extremities. IMPRESSION: No sonographic evidence for deep venous thrombosis in the visualized segments of both lower extremities.
== END 2018-01-29 12:52 | disposition home or self-care (01) ==
LOC: ED 09:15
DX: R60.0 Localized edema (principal); R91.8 Other nonspecific abnormal finding of lung field